=== PATIENT | male | born 1945 | race Caucasian/White ===

== ENCOUNTER 2019-05-31 15:35 | Outpatient (CLI) | payer MEDICARE, BC ==
[~2019-05-31] VITALS: Ht 180.3 cm; Wt 83.2 kg
[2019-05-31 16:41] VITALS: BP 139/69; Ht 180.3 cm; Wt 83.2 kg
== END 2019-05-31 17:05 | disposition home or self-care (01) ==
LOC: D.OPS 15:35
PROVIDERS: ATTEND Legal Medicine
DX: C67.9 Malignant neoplasm of bladder, unspecified (principal); N32.9 Bladder disorder, unspecified; C41.9 Malignant neoplasm of bone and articular cartilage, unspecified; D72.819 Decreased white blood cell count, unspecified

== ENCOUNTER 2019-06-01 13:34 | Outpatient (CLI) | payer MEDICARE, BC ==
[2019-05-31 16:41] VITALS: BMI 25.5
== END 2019-06-01 15:02 | disposition home or self-care (01) ==
LOC: D.OPS 13:34 → D.MS 13:35 → D.OPS 15:02
PROVIDERS: ATTEND Legal Medicine
DX: C67.9 Malignant neoplasm of bladder, unspecified (principal); C79.51 Secondary malignant neoplasm of bone; D72.819 Decreased white blood cell count, unspecified; N32.9 Bladder disorder, unspecified

== ENCOUNTER 2019-06-02 13:58 | Outpatient (CLI) | payer MEDICARE, BC ==
[2019-05-31 16:41] VITALS: BMI 25.5
== END 2019-06-02 14:28 | disposition home or self-care (01) ==
LOC: D.OPS 13:58 → D.MS 14:01 → D.OPS 14:28
PROVIDERS: ATTEND Legal Medicine
DX: C67.9 Malignant neoplasm of bladder, unspecified (principal); C79.51 Secondary malignant neoplasm of bone; D72.819 Decreased white blood cell count, unspecified

== ENCOUNTER 2019-06-03 14:07 | Outpatient (CLI) | payer MEDICARE, BC ==
[~2019-06-03] VITALS: Ht 180.3 cm; Wt 62.7 kg
[2019-06-03 15:40] VITALS: BP 154/81; Ht 180.3 cm; Wt 62.7 kg
--- NOTE | 2019-06-03 15:45 | NUR ---
PT HAS LARGE RAISED, RED AREA FROM ACROSS FORHEAD DOWN TO MID CHEEK ON RT SIDE. PT STATES JUST STARTED TO ITCH NOTICED RED AREA ACROSS MONDAY THAT HAS PROGRESSED. LOOKS LIKE A REACTION IN MEANS OF LARGE HIVE. NOTIFED ASSEMBLY LINE MACHINE OPERATOR KIMBERLEY FAIRCHILD FROM DR SPENCER'S OFFICE OF PT CONDITION. KIMBERLEY STATED TO HOLD NEUPOGEN TODAY AND TO SCHEDULE AN APPT FOR PT TO BE SEEN IN OFFICE TOMORROW. APPT MADE.
--- NOTE | 2019-06-03 15:55 | NUR ---
EXPLAINED TO PT AND FAMILY D/T POSSIBLE REACTION TO THE NEUPOGEN KIMBERLEY WANTS TO HOLD TODAY'S INJECTION AND COME TO OFFICE TOMORROW. APPT TIME GIVEN ON DC SHEET. PT AND FAMILY VU. PT WHEELED DOWN TO CAR VIA WC WITH DAUGHTER DRIVING.
== END 2019-06-03 15:55 | disposition home or self-care (01) ==
LOC: D.OPS 14:07
PROVIDERS: ATTEND Legal Medicine
DX: C67.9 Malignant neoplasm of bladder, unspecified (principal); C79.51 Secondary malignant neoplasm of bone; D72.819 Decreased white blood cell count, unspecified

== ENCOUNTER → 2019-11-27 15:19 | Outpatient (CLI) | payer MEDICARE, BC ==
[2019-06-03 15:40] VITALS: BMI 19.2
[2019-11-27 16:19] LABS: HEMATOCRIT 35.2 % (42.0-54.0); HEMOGLOBIN 11.6 g/dL (13.5-17.5); MCH 29.4 pg (26.0-34.0); MCV 89.1 fL (80.0-100.0); MEAN PLATELET VOLUME 10.9 fL (7.4-10.4); RBC 3.95 10x6/uL (4.20-6.10); RDW 15.1 % (11.5-14.5); WBC 2.1 10x3/uL (4.8-10.8)
[2019-11-27 16:25] LABS: PLATELET COUNT 21 10x3/uL (130-400)
[2019-11-27 17:33] LABS: LYMPHOCYTES 46 % (15-50); MONOCYTES 16 % (2-11); NEUTROPHILS 39 % (40-80); PLATELET ESTIMATE DECREASED
[2019-11-28 13:11] LABS: ANION GAP 14.5 mmol/L (8-16); BILIRUBIN - TOTAL 0.61 mg/dL (0.2-1.3); CALCIUM 7.2 mg/dL (8.5-10.1); CARBON DIOXIDE 21.2 mmol/L (21.0-32.0); CREATININE - SERUM 1.3 mg/dL (0.6-1.3); POTASSIUM - SERUM 3.7 mmol/L (3.5-5.1); PROTEIN - SERUM 6.9 g/dL (6.4-8.2)
== END | disposition home or self-care (01) ==
LOC: D.LABREF 15:19
PROVIDERS: ATTEND Legal Medicine
DX: C67.2 Malignant neoplasm of lateral wall of bladder (principal)